=== PATIENT | female | born 1935 | race Caucasian/White ===

== ENCOUNTER → 2019-04-24 09:17 | Outpatient (CLI) | payer MEDICARE, OTHER, SELFPAY | PROVIDERS: Visit Provider Internal Medicine | DX: M81.0 Age-related osteoporosis without current pathological fracture (principal); Z78.0 Asymptomatic menopausal state; Z87.891 Personal history of nicotine dependence | CPT/HCPCS: 77080 ==

== ENCOUNTER → 2019-07-27 15:03 | Outpatient (ROUT) | payer MEDICARE, OTHER, SELFPAY | PROVIDERS: Visit Provider Student in an Organized Health Care Education/Training Program | DX: R35.0 Frequency of micturition (principal) | CPT/HCPCS: 87086 ==

== ENCOUNTER → 2019-07-30 13:20 | Outpatient (CLI) | payer MEDICARE, OTHER, SELFPAY ==
--- NOTE | 2019-07-30 | DI.CT.S_ITS ---
PROCEDURE: CT ABDOMEN WO CON INDICATIONS: LT FLANK PAIN, WEAKNESS, NAUSE TECHNIQUE: After the administration of oral contrast, 5 mm thick sections acquired from the diaphragms to the iliac crests. 5 mm coronal and sagittal reformats were then performed. For radiation dose reduction, the following was used: automated exposure control, adjustment of mA and/or kV according to patient size. COMPARISON: None. FINDINGS: Image quality: Excellent. Lung bases: Lung bases are clear. Heart size is normal. Solid organs: Liver is normal in size. Gallbladder appears surgically resected. Pancreas is normal in contours. Spleen is normal in size. No adrenal nodules. Both kidneys are normal in size, without hydronephrosis or nephrolithiasis. There is an exophytic cyst water density measuring up to 3.5 cm projecting laterally from the left mid kidney but no hydronephrosis or nephrolithiasis is found in no renal cortical or urothelial inflammation is identified. The rounded structure laterally at the left kidney measures water density but immediately below there is a 26.8 Hounsfield unit soft tissue radiodensity mass measuring up to 1.8 cm craniocaudad and 1.9 cm transverse. This is most convincingly demonstrated on series 4 image 34 coronal reformatt images. Peritoneum and bowel: Bowel loops demonstrate normal wall thickness and caliber. No free fluid or air. Nodes and vessels: No retroperitoneal or mesenteric adenopathy by size criteria. Aorta and inferior vena cava are normal in size. Bones: No suspicious bony lesions. No vertebral body compression fractures. Miscellaneous: No ventral hernias. IMPRESSION: Exophytic from the lateral cortex of the left kidney is 8 water density simple cyst but immediately below is a soft tissue radiodensity mass measuring up to 1.9 cm in maximal dimension that requires additional followup by advanced imaging. Pre-and post contrast imaging through the structure is recommended to assist in differentiating between hyperdense cyst versus solid enhancing mass. Dictated by: Jimmie Appiah M.D. on 07/30/2019 at 14:58 Approved by: Jimmie Appiah M.D. on 07/30/2019 at 15:01
[2019-07-30 13:41] LABS: Add Manual Diff / Slide Review NO; Basophils Absolute Auto 100 /uL (0-100); Basophils Percent Auto 0.7 % (0-2); Eosinophils Absolute Auto 200 /uL (0-450); Eosinophils Percent Auto 2.2 % (2-4); Lymphocytes Absolute Auto 700 /uL (1100-4500); Lymphocytes Percent Auto 7.5 % (25-40); Mean Corpuscular HGB Conc 33.4 % (30-36); Mean Corpuscular Hemoglobin 31.5 PG (26-34); Mean Corpuscular Volume 94.4 fL (80-100); Monocytes Absolute Auto 500 /uL (0-900); Monocytes Percent Auto 5.8 % (3-14); Neutrophils Absolute Auto 7600 /uL (1500-7000); Neutrophils Percent Auto 83.8 % (50-75); Platelet Count 220 X10^3/uL (150-400); Red Blood Cell Count 4.45 X10^6/uL (4.0-5.2); Red Cell Distribution Width 14.4 % (11.6-14.8); White Blood Cell Count 9.1 X10^3/uL (4.5-11.0)
[2019-07-30 14:01] LABS: Alanine Aminotransferase 11 IU/L (<35); Albumin Globulin Ratio 1.3 (1.0-2.8); Alkaline Phosphatase 72 U/L (38-126); Aspartate Aminotransferase 24 IU/L (14-36); BUN Creatinine Ratio 14.7 (6-22); Bilirubin Total 1.6 mg/dL (0.2-1.3); Blood Urea Nitrogen 25 mg/dL (7-17); Calcium 9.1 mg/dL (8.4-10.2); Carbon Dioxide 30 mmol/L (22-32); Chloride 100 mmol/L (98-107); Estimated Glomerular Filt Rate 28.7 mL/min (>60); Glucose 100 mg/dL (80-110); HEMOLYSIS < 15 (0-50); Lipase 117 U/L (23-300); Potassium 3.9 mmol/L (3.4-5.1); Sodium 138 mmol/L (137-145)
== END ==
PROVIDERS: Visit Provider Student in an Organized Health Care Education/Training Program
DX: R10.9 Unspecified abdominal pain (principal); R53.1 Weakness; R11.0 Nausea; N28.1 Cyst of kidney, acquired; N28.89 Other specified disorders of kidney and ureter
CPT/HCPCS: 36415; 74150; 80053; 83690; 85025

== ENCOUNTER → 2019-08-07 07:29 | Outpatient (CLI) | payer MEDICARE, OTHER, SELFPAY ==
--- NOTE | 2019-08-07 | DI.US.S_ITS ---
PROCEDURE: US ABDOMEN COMPLETE INDICATIONS: NAUSEA TECHNIQUE: Real-time scanning was performed of the abdominal and retroperitoneal organs, with image documentation. COMPARISON: Located Within [facility], CT, CT ABDOMEN WO CON, 07/30/2019, 14:26. FINDINGS: Liver: Liver is normal in size and homogeneous in echotexture. Gallbladder: Not visualized. Biliary ducts: Intrahepatic bile ducts are non-dilated. Extrahepatic bile duct caliber measures 4.2 mm. Normal is 6-7 mm or less in diameter, or 10 mm or less post-cholecystectomy. Pancreas: Not visualized. Spleen: Spleen is normal in size and homogeneous in echotexture. Kidneys: Kidneys are normal in size and echotexture. Right kidney measures 8.8 cm long; left kidney measures 8.8 cm long. No hydronephrosis or nephrolithiasis. No solid masses. 3.4 cm simple left renal cyst. Aorta: Visualized aorta is normal in caliber at less than 3 cm. Iliacs: Proximal common iliac arteries are normal in caliber at less than 2.5 cm. IVC: Intrahepatic inferior vena cava is patent. Miscellaneous: No free abdominal fluid. IMPRESSION: 1. Simple left renal cyst; otherwise no source for nausea identified. Dictated by: Misael AUGUSTINE Interpreted: Ruddy Baca MD on 08/07/2019 at 8:37 Approved by: Ruddy Baca M.D. on 08/07/2019 at 16:51
== END ==
PROVIDERS: Visit Provider Internal Medicine
DX: R11.0 Nausea (principal); N28.1 Cyst of kidney, acquired
CPT/HCPCS: 76700

== ENCOUNTER → 2019-08-25 14:06 | Outpatient (CLI) | payer MEDICARE, OTHER, SELFPAY ==
--- NOTE | 2019-08-25 | DI.RAD.S_ITS ---
PROCEDURE: XR KNEE RT 1TO2V INDICATIONS: RT KNEE INJURY TECHNIQUE: 2 views of the knee were acquired. COMPARISON: None. FINDINGS: Bones: No fractures or dislocations. No suspicious bony lesions. Moderate narrowing and periarticular osteophyte of the medial femorotibial joint. Soft tissues: Trace joint effusion. No suspicious soft tissue calcifications. IMPRESSION: 1. No fracture or dislocation. Small knee joint effusion is present. If clinical symptoms persist or clinical suspicion for pathology is high, advanced imaging such as CT or MRI is suggested for further evaluation. 2. Moderate degenerative joint disease. Dictated by: Nargis Arrington M.D. on 08/25/2019 at 15:26 Approved by: Nargis Arrington M.D. on 08/25/2019 at 15:37
--- NOTE | 2019-08-25 | DI.RAD.S_ITS ---
PROCEDURE: XR KNEE LT 1TO2V INDICATIONS: RIGHT KNEE INJURY TECHNIQUE: 2 views of the knee were acquired. COMPARISON: None. FINDINGS: Bones: No fractures or dislocations. No suspicious bony lesions. Severe degeneration of the medial femorotibial joint. Soft tissues: Small joint effusion. No suspicious soft tissue calcifications. IMPRESSION: 1. No fractures or dislocations. 2. Severe degenerative joint disease. Dictated by: Nargis Arrington M.D. on 08/25/2019 at 15:37 Approved by: Nargis Arrington M.D. on 08/25/2019 at 15:41
== END ==
PROVIDERS: PCP Internal Medicine; Visit Provider Internal Medicine
DX: S89.91XA Unspecified injury of right lower leg, initial encounter (principal); M17.0 Bilateral primary osteoarthritis of knee; X58.XXXA Exposure to other specified factors, initial encounter
CPT/HCPCS: 73560

== ENCOUNTER → 2020-02-05 14:33 | Outpatient (CLI) | payer MEDICARE, OTHER, SELFPAY ==
--- NOTE | 2020-02-05 | DI.ECHO.S_ITS ---
[facility]---------+ [facility] +---------+ : : [address] : : : : [id number] : : : : Phone: [phone]+ Echocardiogram Report + + :Name: BELLA SOTELO Study Date: 02/05/2020 Height: 70 in : :[facility] Weight: 186 lb : : Gender: Female BSA: 2.0 m2 : :: 1935 Age: 84 yrs BP: 148/82 mmHg: :Reason For Study: Atrial fibrillation : :Ordering Physician: Jose Su : :[place] Performed By: Candace Bates : :Referring: JOSE BARKER : + + Interpretation Summary 1) Normal left ventricular size with mildly reduced systolic function (EF 45- 50%). 2) The right ventricle is moderately dilated. Right ventricular systolic function is mildly reduced. 3) There is severe biatrial enlargement. 4) A patent foramen ovale is present. Doppler evidence suggests a left to right interatrial shunt. 5) There is mild to moderate mitral regurgitation. 6) There is mild to moderate tricuspid regurgitation. 7) The right ventricular systolic pressure is estimated to be at least 37 mmHg based on an estimated right atrial pressure of 3 mm Hg. 8) No prior Echo available for comparison. Procedure: A two-dimensional transthoracic echocardiogram with color flow and Doppler was performed. The study quality was technically adequate. There is no prior echocardiogram noted for this patient. The patient was in atrial fibrillation with heart rates between 63-85 bpm during the exam. Left Ventricle: The left ventricle is normal in size. Proximal septal thickening is noted. There is mild concentric left ventricular hypertrophy. The ejection fraction is estimated to be 45-50%. Diastolic function could not be accurately assessed due to atrial fibrillation. Right Ventricle: The right ventricle is moderately dilated. Right ventricular systolic function is mildly reduced. Atria: There is severe biatrial enlargement. A patent foramen ovale is present. Doppler evidence suggests a left to right interatrial shunt. Mitral Valve: The mitral valve leaflets appear mildly thickened, but open well. There is mild to moderate mitral regurgitation. Aortic Valve: The aortic valve is trileaflet. The aortic valve is mildly calcified. There is no aortic valve stenosis. No aortic regurgitation is present. Tricuspid Valve: The tricuspid valve leaflets are thin and pliable. There is mild to moderate tricuspid regurgitation. The right ventricular systolic pressure is estimated to be at least 37 mmHg based on an estimated right atrial pressure of 3 mm Hg. Pulmonic Valve: The pulmonic valve is not well seen, but is grossly normal. There is trace pulmonic regurgitation. Great Vessels: The aortic root is normal size. The ascending aorta is mildly enlarged. The IVC is of normal diameter and collapses greater than 50% with a sniff. This suggests a low right atrial pressure of 3 mm Hg. Pericardium/ Pleura There is no pericardial effusion. There is no pleural effusion. MMode/2D Measurements & Calculations LVIDd: 5.5 cm LVOT diam: 2.2 cm LVIDs: 4.0 cm Ao root diam: 2.8 cm FS: 27.4 % asc Aorta Diam: 3.5 cm EPSS: 1.4 cm IVSd: 0.85 cm LVPWd: 0.99 cm LV rossi. diameter/BSA (cm/m^2): 2.7 LV sys. diameter/BSA (cm/m^2): 2.0 LA A2 area: 36.4 cm2 RA long axis: 6.5 cm LA A4 area: 31.7 cm2 RA area: 27.1 cm2 LA length (vol): 7.1 cm RA vol: 95.8 ml LA vol: 138.7 ml RA : 47.4 ml/m2 LA vol index: 68.5 ml/m2 IVC diam: 1.1 cm RVD1 (basal): 4.8 cm TAPSE: 1.6 cm Doppler Measurements & Calculations Ao V2 max: 120.6 cm/sec LVOT Max Nikhil: 62.2 cm/sec Ao V2 mean: 74.0 cm/sec LV V1 max P.5 mmHg Ao max P.9 mmHg LV V1 VTI: 14.6 cm Ao mean P.7 mmHg RADHA(I,D): 2.1 cm2 Ao V2 VTI: 26.3 cm RADHA(V,D): 1.9 cm2 sev ratio: 0.55 RADHA indexed to BSA (cm^2/m^2): 1.0 MV E max nikhil: 89.7 cm/sec TR max nikhil: 291.7 cm/sec MV A max nikhil: 1.5 cm/sec TR max P.1 mmHg MV E/A: 60.7 PA V2 max: 64.1 cm/sec Med Peak E' Nikhil: 9.8 cm/sec PA V2 mean: 40.1 cm/sec E/E' med: 9.1 PA mean P.76 mmHg Lat Peak E' Nikhil: 14.1 cm/sec E/E' lat: 6.4 E/e' average: 7.8 MV dec time: 0.15 sec SVLVOT): 54.0 ml Reading Physician:04:16 PM
== END ==
PROVIDERS: PCP Internal Medicine; Referring Provider Internal Medicine Cardiovascular Disease; Visit Provider Internal Medicine Cardiovascular Disease
DX: I08.1 Rheumatic disorders of both mitral and tricuspid valves (principal); Q21.1 Atrial septal defect; I48.19 Other persistent atrial fibrillation
CPT/HCPCS: 93306

== ENCOUNTER → 2020-08-16 19:07 | Outpatient (ROUT) | payer MEDICARE, OTHER, SELFPAY ==
[2020-08-16 19:38] LABS: Add Manual Diff / Slide Review NO; Basophils Absolute Auto 100 /uL (0-100); Basophils Percent Auto 1.3 % (0-2); Eosinophils Absolute Auto 200 /uL (0-450); Eosinophils Percent Auto 3.5 % (2-4); Hematocrit 42.1 % (36-46); Hemoglobin 14.1 g/dL (12.0-16.0); Lymphocytes Absolute Auto 1400 /uL (1100-4500); Mean Corpuscular HGB Conc 33.5 % (30-36); Mean Corpuscular Hemoglobin 32.1 PG (26-34); Mean Corpuscular Volume 95.9 fL (80-100); Monocytes Absolute Auto 500 /uL (0-900); Monocytes Percent Auto 7.4 % (3-14); Neutrophils Absolute Auto 4100 /uL (1500-7000); Neutrophils Percent Auto 65.8 % (50-75); Platelet Count 255 X10^3/uL (150-400); Red Blood Cell Count 4.39 X10^6/uL (4.0-5.2); White Blood Cell Count 6.2 X10^3/uL (4.5-11.0)
[2020-08-16 19:45] LABS: BUN Creatinine Ratio 21.4 (6-22); Blood Urea Nitrogen 28 mg/dL (7-17); Calcium 8.8 mg/dL (8.4-10.2); Carbon Dioxide 30 mmol/L (22-32); Chloride 100 mmol/L (98-107); Estimated Glomerular Filt Rate 38.7 mL/min (>60); Glucose 97 mg/dL (80-110); HEMOLYSIS < 15 (0-50); Potassium 4.2 mmol/L (3.4-5.1); Sodium 136 mmol/L (137-145)
== END ==
PROVIDERS: PCP Internal Medicine; Visit Provider Internal Medicine
DX: K57.32 Diverticulitis of large intestine without perforation or abscess without bleeding (principal); N18.9 Chronic kidney disease, unspecified
CPT/HCPCS: 80048; 85025

== ENCOUNTER → 2020-08-19 12:06 | Outpatient (CLI) | payer MEDICARE, OTHER, SELFPAY ==
--- NOTE | 2020-08-19 12:09 | DI.CT.S_ITS ---
PROCEDURE: CT ABDOMEN PELVIS WO CON INDICATIONS: Left lower quadrant pain TECHNIQUE: After the administration of oral contrast, 5 mm thick sections acquired from the diaphragms to the symphysis. 5 mm coronal and sagittal reformats were performed. For radiation dose reduction, the following was used: automated exposure control, adjustment of mA and/or kV according to patient size. COMPARISON: [facility], CT, CT ABDOMEN WO CON, 07/30/2019, 14:26. FINDINGS: Image quality: Excellent. ABDOMEN: Lung bases: Lung bases are clear. Heart size is enlarged. Coronary artery calcifications are present. Solid organs: Liver is normal in size. Gallbladder is surgically absent. Pancreas is normal in size. Spleen is normal in size. No adrenal nodules. No hydronephrosis. Simple appearing left renal cyst measuring 3.5 cm on image 29/2. Exophytic left renal lesion measuring 2 cm (previously 1.8 cm diameter) seen on image 34/2 demonstrates greater than expected attenuation (23 Hounsfield units) for simple cyst therefore cannot exclude solid lesion. Differential includes hyperdense cyst. This measures 2.3 x 1.9 cm on coronal image 34/4. Peritoneum and bowel: Bowel loops demonstrate normal wall thickness and caliber. No free fluid or air. Appendix is not clearly identified however no suspicious pericecal inflammatory changes are seen. Mild to moderate stool Nodes and vessels: No retroperitoneal or mesenteric adenopathy by size criteria. Aorta and inferior vena cava are normal in size. Scattered vascular calcifications seen in the aorta. Miscellaneous: No ventral hernias. PELVIS: Genitourinary: The bladder is decompressed. Possible circumferential bladder wall thickening however limited evaluation given partial collapse Miscellaneous: No inguinal hernias or adenopathy. Bones: No vertebral body compression fracture. Spondylytic changes and facet arthropathy. Diffuse osteopenia . Scoliosis noted. IMPRESSION: No acute abnormality. Exophytic left renal lesion is slightly increased in size since 07/30/19 and demonstrates greater than expected attenuation for simple fluid therefore this finding suggests solid renal neoplasm such as RCC until proven otherwise Recommend further evaluation with dedicated renal ultrasound to assess solid versus cystic nature. Renal protocol CT or MRI could be performed as clinically warranted, if the patient can tolerate contrast material. Also, recommend urology surgical consultation Dictated by: Ruddy Mendoza M.D. on 08/19/2020 at 14:49 Approved by: Ruddy Mendoza M.D. on 08/19/2020 at 14:59
== END ==
PROVIDERS: PCP Internal Medicine; Referring Provider Physician Assistant; Visit Provider Physician Assistant
DX: R10.32 Left lower quadrant pain (principal); N28.9 Disorder of kidney and ureter, unspecified; Z90.49 Acquired absence of other specified parts of digestive tract
CPT/HCPCS: 74176

== ENCOUNTER → 2020-08-25 13:49 | Outpatient (CLI) | payer MEDICARE, OTHER, SELFPAY ==
--- NOTE | 2020-08-25 | DI.US.S_ITS ---
PROCEDURE: US RENAL COMPLETE INDICATIONS: OTHER SPECIFIED DISORDERS OF THE KIDNEY AND URETER TECHNIQUE: Real-time scanning was performed of the kidneys and bladder, with image documentation. COMPARISON: [facility], CT, CT ABDOMEN WO CON, 07/30/2019, 14:26. [facility], US, US ABDOMEN COMPLETE, 08/07/2019, 7:52. [facility], CT, CT ABDOMEN PELVIS WO CON, 08/19/2020, 13:45. FINDINGS: Kidneys: Kidneys are normal in size. Right kidney measures 9.0 cm long; left kidney measures 10.0 cm long. Right renal cortical thickness is 1.0 cm; left renal cortical thickness is 1.2 cm. Renal cortical has increased echotexture. Bilateral renal cortical cysts are present. A 1.7 cm cyst is seen in the superior pole of the right. There is a 3.8 cm exophytic cyst in mid left kidney. Adjacent to the cyst, there is a 2.6 cm cyst. No hydronephrosis or nephrolithiasis. No suspicious solid mass lesions. Bladder: The patient voided prior to the exam. Post-void bladder volume is 75.5 mL. . Pre-void images demonstrate no intraluminal masses or stones. On pre-void images, both ureteral jets are noted with color Doppler interrogation. (Of note, ureteral jets may not be detectable in up to 25% of cases due to insufficient differences in specific gravity between ureteral and bladder urine). Miscellaneous: No free pelvic fluid. IMPRESSION: 1. Bilateral renal cortical thinning and increased echogenicity consistent with medical renal disease. No hydronephrosis. 2. Bilateral renal cysts. No solid renal masses. The isodense lesion adjacent to the larger cyst is simple appearing cyst on ultrasound. 3. Normal urinary bladder. Dictated by: Nargis Arrington M.D. on 08/25/2020 at 15:13 Approved by: Nargis Arrington M.D. on 08/26/2020 at 8:45
== END ==
PROVIDERS: PCP Internal Medicine; Referring Provider Physician Assistant; Visit Provider Physician Assistant
DX: N28.89 Other specified disorders of kidney and ureter (principal); N28.1 Cyst of kidney, acquired
CPT/HCPCS: 76770

== ENCOUNTER → 2020-11-04 10:53 | Outpatient (CLI) | payer MEDICARE, OTHER, SELFPAY ==
[2020-11-04 11:28] LABS: Add Manual Diff / Slide Review NO; Basophils Absolute Auto 100 /uL (0-100); Basophils Percent Auto 1.4 % (0-2); Eosinophils Absolute Auto 300 /uL (0-450); Eosinophils Percent Auto 4.8 % (2-4); Hematocrit 38.2 % (36-46); Hemoglobin 12.6 g/dL (12.0-16.0); Lymphocytes Absolute Auto 1100 /uL (1100-4500); Lymphocytes Percent Auto 17.5 % (25-40); Mean Corpuscular Hemoglobin 31.8 PG (26-34); Mean Corpuscular Volume 96.4 fL (80-100); Monocytes Absolute Auto 500 /uL (0-900); Monocytes Percent Auto 7.9 % (3-14); Neutrophils Absolute Auto 4100 /uL (1500-7000); Neutrophils Percent Auto 68.4 % (50-75); Platelet Count 213 X10^3/uL (150-400); Red Blood Cell Count 3.97 X10^6/uL (4.0-5.2); Red Cell Distribution Width 14.2 % (11.6-14.8)
[2020-11-04 11:51] LABS: BUN Creatinine Ratio 23.1 (6-22); Blood Urea Nitrogen 33 mg/dL (7-17); Calcium 8.6 mg/dL (8.4-10.2); Carbon Dioxide 32 mmol/L (22-32); Chloride 103 mmol/L (98-107); Glucose 85 mg/dL (80-110); HEMOLYSIS < 15 (0-50); Potassium 4.5 mmol/L (3.4-5.1); Sodium 137 mmol/L (137-145)
== END ==
PROVIDERS: PCP Internal Medicine; Referring Provider Internal Medicine Cardiovascular Disease; Visit Provider Internal Medicine Cardiovascular Disease
DX: Z79.01 Long term (current) use of anticoagulants (principal); I10 Essential (primary) hypertension
CPT/HCPCS: 36415; 80048; 85025

== ENCOUNTER → 2021-09-18 10:54 | Outpatient (CLI) | payer MEDICARE, OTHER, SELFPAY | PROVIDERS: PCP Student in an Organized Health Care Education/Training Program; Referring Provider Student in an Organized Health Care Education/Training Program; Visit Provider Student in an Organized Health Care Education/Training Program | DX: M81.0 Age-related osteoporosis without current pathological fracture (principal); Z78.0 Asymptomatic menopausal state; E07.9 Disorder of thyroid, unspecified; Z82.62 Family history of osteoporosis | CPT/HCPCS: 77080 ==

== ENCOUNTER → 2021-11-10 10:50 | Outpatient (CLI) | payer MEDICARE, OTHER, SELFPAY ==
--- NOTE | 2021-11-10 10:53 | DI.CT.S_ITS ---
PROCEDURE: CT ABDOMEN PELVIS WO CON INDICATIONS: Right lower quadrant pain TECHNIQUE: Axial sections were acquired from the lung bases to the pubic symphysis. Coronal and sagittal reformats were performed. For radiation dose reduction, the following was used: automated exposure control, adjustment of mA and/or kV according to patient size. COMPARISON: [facility], US, US RENAL COMPLETE, 08/25/2020, 14:07. [facility], CT, CT ABDOMEN WO CON, 07/30/2019, 14:26. [facility], US, US ABDOMEN COMPLETE, 08/07/2019, 7:52. [facility], CT, CT ABDOMEN PELVIS WO CON, 08/19/2020, 13:45. FINDINGS: Image quality: Excellent. Lung bases: Unremarkable. Heart: No significant findings. URINARY: Right Kidney: No stones or hydronephrosis. Right Ureter: No hydroureter. Left Kidney: No stones or hydronephrosis. There is a 3.4 cm simple appearing cyst in the lateral cortex of the left kidney. Just inferior to the cyst, there is a solid-appearing mass measuring 2.4 cm in diameter, which appears unchanged compared to the last renal ultrasound dated 08/25/2020. Based on the ultrasound, both are cyst. No solid masses. Left Ureter: No hydroureter. Bladder: Normal wall thickness. No stones. ABDOMEN: Liver: Unremarkable. Gallbladder: Surgically removed. Biliary ducts: Unremarkable. Pancreas: Unremarkable. Spleen: Unremarkable. Adrenal Glands: There is a 1.5 cm left adrenal adenoma. Stomach and Bowel: Stomach, small bowel loops, and colon are normal in caliber. Appendix is not identified. There is no secondary signs to suggest acute appendicitis. There is a moderate amount of stool in colon. Peritoneum: No abnormal intraperitoneal fluid. No free air. Ventral Wall: No hernia. Abdominal Nodes: No enlarged retroperitoneal or mesenteric lymph nodes. Vessels: Aorta and inferior vena cava are normal in size. Moderate atherosclerotic calcifications. PELVIS: Pelvic Organs: Uterus and ovaries are not visualized, likely surgically removed.. Pelvic Nodes: Unremarkable. Miscellaneous: No inguinal hernias are seen. Bones: Mild scoliosis. Moderate to severe degenerative changes in lumbar spine. IMPRESSION: 1. No acute abnormalities in abdomen or pelvis. A cause for right lower quadrant pain is not identified. 2. Moderate amount of stool in colon. 3. Left adrenal adenoma. 4. A couple of exophytic left renal cysts. Dictated by: Nargis Arrington M.D. on 11/10/2021 at 12:49 Approved by: Nargis Arrington M.D. on 11/10/2021 at 13:15
== END ==
PROVIDERS: PCP Student in an Organized Health Care Education/Training Program; Referring Provider Student in an Organized Health Care Education/Training Program; Visit Provider Student in an Organized Health Care Education/Training Program
DX: D35.02 Benign neoplasm of left adrenal gland (principal); N28.1 Cyst of kidney, acquired; R10.31 Right lower quadrant pain
CPT/HCPCS: 74176